=== PATIENT | male | born 1965 ===

== ENCOUNTER → 2016-08-24 | Outpatient (CLI) | payer BC, OTHER ==
[2016-08-24 13:26] LABS: CHOLESTEROL/HDL RATIO 2.8
== END | disposition home or self-care (01) ==
LOC: C.LABMFLN 08:56
PROVIDERS: ATTEND Family Medicine
DX: E78.5 Hyperlipidemia, unspecified (principal)

== ENCOUNTER → 2017-02-27 | Outpatient (CLI) | payer BC ==
[2017-02-27 13:12] LABS: BASO % 0.3 %; BASO ABS # 0.02 K/uL (0-0.2); COMPLETE YES; HEMATOCRIT 44.5 % (42-52); IG% 0.3 %; LYMPH % 26.4 %; LYMPH ABS # 1.59 K/uL (1.2-3.4); MEAN CELL VOLUME 85.6 fL (80-100); MEAN CORPUSCULAR HEMOGLOBIN 29.8 pg (25-34); MEAN CORPUSCULAR HGB CONC 34.8 g/dl (32-36); MEAN PLATELET VOLUME 10.1 fL (7.4-10.4); PLATELET COUNT 229 K/uL (130-400); WHITE BLOOD COUNT 6.03 K/uL (4.8-10.8)
[2017-02-27 13:39] LABS: BLOOD UREA NITROGEN 13 mg/dl (7-18); CREATININE 0.86 mg/dl (0.60-1.40); GLUCOSE 82 mg/dl (70-99)
[2017-02-27 13:40] LABS: ALT/SGPT 33 U/L (12-78); BUN/CREATININE RATIO 15.2 (10-20); CALCIUM 8.8 mg/dl (8.5-10.1); CARBON DIOXIDE 29 mmol/L (21-32); CHLORIDE 110 mmol/L (98-107); POTASSIUM 4.3 mmol/L (3.5-5.1); SODIUM 144 mmol/L (136-145)
[2017-02-27 13:45] LABS: CHOLESTEROL 119 mg/dl (0-200); CHOLESTEROL/HDL RATIO 2.8; HDL CHOLESTEROL 42 mg/dl; LDL CHOLESTEROL CALCULATED 64 mg/dl; PHOSPHORUS 2.9 mg/dl (2.5-4.9); PROSTATE SPECIFIC ANTIGEN 0.921 ng/ml (0.000-4.000); TRIGLYCERIDES 64 mg/dl (0-150); VERY LOW DENSITY LIPOPROT CALC 13 mg/dl
== END ==
LOC: C.LABMFLN 08:31
PROVIDERS: ATTEND Family Medicine
DX: K21.9 Gastro-esophageal reflux disease without esophagitis (principal); E78.5 Hyperlipidemia, unspecified; Z12.5 Encounter for screening for malignant neoplasm of prostate

== ENCOUNTER → 2017-09-04 | Outpatient (CLI) | payer BC | END | disposition home or self-care (01) | LOC: C.LABMFLN 08:20 | PROVIDERS: ATTEND Family Medicine | DX: E78.5 Hyperlipidemia, unspecified (principal) ==